=== PATIENT | female | born 1960 ===

== ENCOUNTER 2020-04-10 19:44 | Emergency (ER) | payer OTHER ==
[~2020-04-10] VITALS: Ht 154.9 cm; Wt 57.0 kg
[2020-04-10 20:15] VITALS: BP 125/80
[2020-04-11 00:23] LABS: BASOPHILS % 0.4 % (0.0-2.0); EOSINOPHILS % 0.3 % (0.0-5.0); HEMATOCRIT. 42.8 % (36.0-48.0); HEMOGLOBIN. 14.7 g/dL (12.0-16.0); LYMPHOCYTES % 27.2 % (20.0-50.0); MEAN CORPUSCULAR HEMOGLOBIN 25.6 pg (28.0-32.0); MEAN CORPUSCULAR VOLUME 74.7 fL (81.0-99.0); MEAN PLATELET VOLUME 8.7 fl (7.4-10.4); MONOCYTES % 5.9 % (2.0-8.0); NEUTROPHILS % 66.2 % (40.0-76.0); PLATELET 285 x1000/uL (130-400); RED BLOOD CELL COUNT 5.74 mill/uL (4.2-5.4); RED CELL DISTRIBUTION WIDTH 13.8 % (11.6-14.6)
[2020-04-11 00:28] LABS: CHLORIDE 105 mEq/L (98-107)
== END 2020-04-11 02:07 | disposition home or self-care (01) ==
LOC: ER 19:44
DX: F43.22 Adjustment disorder with anxiety (principal); R45.0 Nervousness; I49.9 Cardiac arrhythmia, unspecified
CPT/HCPCS: 36415; 71045; 80053; 83880; 84484; 85025; 93005; 99285